=== PATIENT | female | born 1955 | race Caucasian/White ===

== ENCOUNTER 2023-12-24 07:18 | Day surgery (SDC) | payer MEDICARE ==
[~2023-12-24] VITALS: Ht 167.6 cm; Wt 100.9 kg
[2023-12-24] VITALS (7 sets, daily range): BP systolic 99–178; BP diastolic 63–94; PULSE 53–66; TEMP 97.4
[~2023-12-24 07:18] MED LIST: Ondansetron 4 MG/2 ML VIAL IV PRN
[2023-12-24] MEDS ORDERED: SINGULAIR 110 MG/TAB PO (07:43)
[2023-12-24] MEDS ORDERED: DEXCOM G6 SENS1 EACH MC (07:44)
[2023-12-24] MEDS ORDERED: MUCINEX 60600 MG/TA1 PO (07:44)
[2023-12-24] MEDS ORDERED: NEXIUM 40MG40 MG PO (07:45)
[2023-12-24] MEDS ORDERED: ALEVE 220MG220 MG PO (07:45)
[2023-12-24] MEDS ORDERED: LANTUS100 U/ML SQ (07:46)
[2023-12-24] MEDS ORDERED: HUMALOG100 U/ML SQ (07:46)
--- NOTE | 2023-12-24 08:23 | NUR ---
Patient admitted to [facility] 2. at bedside. Admission assessments complete. Medications, pharmacy, and allergies confirmed. Pt did not bring medication list, meds completed in med rec off of patient and husbands memory. Blood sugar obtained. VSS. Portacath in right chest accessed with 3/4 inch ybarra needle, blood return noted, LR infusing without issues. Pt reports prep was effective. Denies complaints. Call light within reach.
[2023-12-24] MEDS ORDERED: LR 1,000 ML IV SCH (09:15)
[2023-12-24] MEDS ORDERED: Lidocaine PF 2% (20 MG/ML) 5 ML VIAL ONE (09:18)
--- NOTE | 2023-12-24 16:28 | NUR ---
1010 PATIENT RETURNS TO [facility] VIA CART. PT AWAKE AND ALERT. RESPIRATIONS UNLABORED. AMBULATED TO RECLINER CHAIR WITH 2:1 SBA. PT DENIES NAUSEA OR ABDOMINAL PAIN. HOOKED UP TO MONITOR AND VS OBTAINED. CALL LIGHT AT SIDE AND PRESENT. 1015 PATIENT TOLERATING PEPSI AND CHOCOLATE PUDDING WITHOUT NAUSEA OR DIFFICULTY SWALLOWING. 1030 IN ROOM SPEAKING WITH PATIENT. 1045 D/C INSTRUCTIONS REVIEWED WITH PATIENT. PT VERBALIZED UNDERSTANDING AND A COPY OF INSTRUCTIONS PROVIDED IN D/C FOLDER. 1100 PATIENT DRESSES SELF. 1115 PATIENT DISCHARGED FROM UNIT VIA W/C TO A PERSONAL VEHICLE. PT LEFT HOSPITAL IN STABLE CONDITION.
== END 2023-12-24 11:15 | disposition home or self-care (01) ==
LOC: SDCO 07:18
DX: D50.0 Iron deficiency anemia secondary to blood loss (chronic) (principal); K21.9 Gastro-esophageal reflux disease without esophagitis; K44.9 Diaphragmatic hernia without obstruction or gangrene; K31.89 Other diseases of stomach and duodenum; K58.1 Irritable bowel syndrome with constipation; K25.4 Chronic or unspecified gastric ulcer with hemorrhage; D12.3 Benign neoplasm of transverse colon; D12.4 Benign neoplasm of descending colon; D12.0 Benign neoplasm of cecum; K57.30 Diverticulosis of large intestine without perforation or abscess without bleeding; K64.0 First degree hemorrhoids; E11.9 Type 2 diabetes mellitus without complications; E66.9 Obesity, unspecified; Z79.4 Long term (current) use of insulin
CPT/HCPCS: J2704; J7120